=== PATIENT | male | born 1990 | race Caucasian/White ===

== ENCOUNTER 2024-07-01 17:26 | Emergency (ER) | payer BC, OTHER ==
[~2024-07-01] VITALS: Ht 190.5 cm; Wt 99.8 kg
[2024-07-01] MEDS ORDERED: PANTOPRAZOLE SODIUM 40 MG VIAL ONE (18:29)
[2024-07-01] MEDS: PANTOPRAZOLE SODIUM IV 80 MG in IV DEXTROSE 5% 100 ML IV ONE (18:40)
[2024-07-01 18:43] LABS: BASOPHILS % (AUTO) 0.2 % (0.0-2.0); EOSINOPHILS # (AUTO) 0.2 K/uL (0.0-0.7); EOSINOPHILS % (AUTO) 2.3 % (0.0-7.0); HEMATOCRIT 43.9 % (36.7-47.1); HEMOGLOBIN 14.6 g/dL (12.5-16.3); LYMPHOCYTES # (AUTO) 2.7 K/uL (0.8-4.8); LYMPHOCYTES % (AUTO) 27.4 % (20.5-51.5); MEAN CORPUSCULAR HEMOGLOBIN 30.4 uug (23.8-33.4); MEAN CORPUSCULAR HGB CONC 33 g/dL (32.5-36.3); MEAN CORPUSCULAR VOLUME 91.1 fL (73.0-96.2); MONOCYTES # (AUTO) 0.9 K/uL (0.1-1.30); MONOCYTES % (AUTO) 9.5 % (0.0-11.0); NEUTROPHILS # (AUTO) 5.9 K/uL (1.8-8.9); NEUTROPHILS % (AUTO) 60.6 % (38.5-71.5); PLATELET COUNT (AUTO) 369 K/uL (152-348); RED BLOOD CELL COUNT(AUTO) 4.82 MIL/uL (4.06-5.63); RED CELL DISTRIBUTION WIDTH 14.7 % (12.1-16.2); WHITE BLOOD COUNT (AUTO) 9.7 K/uL (3.6-10.2)
[2024-07-01 19:03] LABS: DIFFERENTIAL COMMENT 1
[2024-07-01 19:06] LABS: CALCIUM 9.2 mg/dL (8.5-10.1); POTASSIUM 4.3 mmol/L (3.5-5.1)
[2024-07-01 19:13] LABS: *OCCULT BLOOD STOOL NEGATIVE (NEGATIVE)
[2024-07-01 19:16] LABS: ALBUMIN 3.6 g/dL (3.4-5.0); BILIRUBIN,DIRECT 0.1 mg/dL (0.0-0.2); BILIRUBIN,TOTAL 0.3 mg/dL (0.2-1.0); TOTAL PROTEIN, SERUM 7.4 g/dL (6.4-8.2)
[2024-07-01 20:18] VITALS: O2SAT 100
[2024-07-01 20:20] VITALS: TEMP 98.7
== END 2024-07-01 20:21 | disposition home or self-care (01) ==
LOC: ER 17:49
DX: K92.1 Melena (principal); R74.01 Elevation of levels of liver transaminase levels; M25.552 Pain in left hip; R10.2 Pelvic and perineal pain; F17.210 Nicotine dependence, cigarettes, uncomplicated; Z87.11 Personal history of peptic ulcer disease; Z88.2 Allergy status to sulfonamides
CPT/HCPCS: 99284; 96365; 82270; 80076; 80048; 85025; 85610; 86850; 86900; 86901; 36415; 73502; 72170; J2470 ×2